=== PATIENT | female | born 2000 | race Caucasian/White ===

== ENCOUNTER 2019-07-14 17:47 | Emergency (ER) | payer MEDICAID, SELFPAY ==
[2019-07-14 17:48] VITALS: BP 130/72; PULSE 88; RESP 17; TEMP 36.7; O2SAT 100; BMI 28.3
--- NOTE | 2019-07-14 18:22 | ED.VIS.GEN ---
History of Present Illness Chief Complaint: Abd Pain Informant: Patient Onset: Days Context: Gradual Onset Timing: Waxes and wanes Current Severity: Mild Maximum Severity: Moderate Narrative: She presents with upper abdominal pain for the past 4 days. Pain does seem to be intermittent. It is not necessarily worsened with food. She also feels short of breath with any exertion. She denies nausea or vomiting but has had diarrhea. She was recently in [place] for vacation. She denies camping or drinking any river water. Past Medical History - Allergies and Home Meds Allergies/Adverse Reactions: Allergies No Known Allergies Allergy (Verified 07/14/19 17:48) Primary Care Physician: [facility] Doctor,Out of [Primary Care Provider] - 3-5 Days if not improving Prior records reviewed: Yes Past Medical History: - - Reviewed Surgical History: cholecystectomy Lives: With Family Review of Systems General: Reports: Chills. Denies: Fever Eyes: Denies: Visual changes - bilaterally ENT: Denies: Bilateral ear pain Cardiovascular: Denies: Chest pain Respiratory: Reports: Dyspnea. Denies: Cough Gastrointestinal: Reports: Abdominal pain, Diarrhea. Denies: Vomiting Genitourinary: Denies: Dysuria Musculoskeletal: Denies: Neck pain, Back pain Skin: Denies: Rash Neurological: Denies: Headache Endocrine: Denies: Polyuria, Polydipsia Hematologic: Denies: Easy bruising Allergy: Denies: Uticaria Physical Exam Vital Signs/Narrative: Vital Signs Temp Pulse Resp BP Pulse Ox 07/14/19 17:48 98.1 F 88 17 130/72 H 100 Inital Vital Signs reviewed: Yes General: Well nourished, Well developed ENT: Moist mucous membranes Neck: Supple Cardiovascular: Regular rate, Regular rhythm Respiratory: No distress, CTA bilaterally Abdomen: Soft, Nontender, Hypoactive bowel sounds Extremities: Nontender, No edema Skin: Normal color, No rash Neurological: Alert, Oriented x3 Psychological: Normal affect Diagnostic/Tx/Re-eval Laboratory Results 07/14/19 07/14/19 07/14/19 18:11 18:11 18:11 WBC 13.8 H RBC 4.73 Hgb 14.0 Hct 42.2 MCV 89.2 MCH 29.6 MCHC 33.2 RDW Std Deviation 38.4 RDW Coeff of Jessica 11.8 Plt Count 270 MPV 10.6 Immature Gran % (Auto) 0.400 Neut % (Auto) 62.7 Lymph % (Auto) 27.8 Colbert % (Auto) 7.2 Eos % (Auto) 1.2 Baso % (Auto) 0.7 Absolute Neuts (auto) 8.7 H Absolute Lymphs (auto) 3.84 Nucleated RBC % 0 D-Dimer Quant (PE/DVT) < 0.27 L Sodium 142 Potassium 3.8 Chloride 109 H Carbon Dioxide 27.0 Anion Gap 6 BUN 19 H Creatinine 0.82 Estim Creat Clear Calc 90.53 Est GFR (MDRD) Af Amer 115 Est GFR (MDRD) Non-Af 95 BUN/Creatinine Ratio 23.3 H Glucose 94 Calcium 8.7 Total Bilirubin 0.30 Direct Bilirubin 0.11 AST 19 ALT 21 Alkaline Phosphatase 98 Total Protein 7.0 Albumin 3.9 Globulin 3.1 Lipase 114 Serum , Qual Urine Color Urine Clarity Urine pH Ur Specific [place] Urine Protein Urine Glucose (UA) Urine Ketones Urine Occult Blood Urine Nitrite Urine Bilirubin Urine Urobilinogen Ur Leukocyte Esterase Urine RBC Urine WBC Ur Squamous Epith Cells Urine Bacteria Urine Mucus 07/14/19 07/14/19 18:11 19:10 WBC RBC Hgb Hct MCV MCH MCHC RDW Std Deviation RDW Coeff of Jessica Plt Count MPV Immature Gran % (Auto) Neut % (Auto) Lymph % (Auto) Colbert % (Auto) Eos % (Auto) Baso % (Auto) Absolute Neuts (auto) Absolute Lymphs (auto) Nucleated RBC % D-Dimer Quant (PE/DVT) Sodium Potassium Chloride Carbon Dioxide Anion Gap BUN Creatinine Estim Creat Clear Calc Est GFR (MDRD) Af Amer Est GFR (MDRD) Non-Af BUN/Creatinine Ratio Glucose Calcium Total Bilirubin Direct Bilirubin AST ALT Alkaline Phosphatase Total Protein Albumin Globulin Lipase Serum , Qual NEGATIVE Urine Color Straw Urine Clarity Clear Urine pH 7.0 Ur Specific [place] 1.010 Urine Protein Negative Urine Glucose (UA) Normal Urine Ketones Negative Urine Occult Blood Negative Urine Nitrite Negative Urine Bilirubin Negative Urine Urobilinogen Normal Ur Leukocyte Esterase Negative Urine RBC 0 SEEN Urine WBC 0 SEEN Ur Squamous Epith Cells 0-5 SEEN Urine Bacteria 0 SEEN Urine Mucus 0 SEEN - Medical Decision Making Patient was given Zofran, Toradol, and IV fluids. On repeat evaluation patient is resting comfortably does feel improved. Test results are discussed with her. Her white count is elevated at 13.8 but normal differential is noted. Abdomen is soft with no focal tenderness. D-dimer is negative. Patient is reassured with these findings. She will continue to follow bland diet and use Tylenol or ibuprofen as needed for pain. ED Disposition - Plan for ED Patient: Disposition: Home or Assisted Living Diagnosis: Abdominal pain Instructions: ABDOMINAL PAIN, Unknown Cause, (Female) Referrals: [facility] Doctor,Out of [Primary Care Provider] - 3-5 Days if not improving
[2019-07-14 18:30] LABS: Absolute Lymphocyte Count 3.84 X10^3/uL (0.83-4.51); Absolute Neutrophil Count 8.7 X10^3/uL (2.0-7.7); Basophil# 0.09 X10^3/uL; Basophil% 0.7 % (0-1); Eosinophil# 0.17 X10^3/uL; Eosinophils% 1.2 % (0-5); Hematocrit 42.2 % (37-47); Lymphocyte # 3.84 X10^3/ul (4.0); Lymphocyte % 27.8 % (19-41); Mean Corp Hgb Conc 33.2 g/dL (32-36); Mean Corpuscular Hgb 29.6 pg (27.0-32.0); Mean Corpuscular Volume 89.2 fL (81-99); Mean Platelet Vol. 10.6 fl (6.2-12.0); Monocyte# 0.99 X10^3/uL; Monocyte% 7.2 % (0-10); NRBC Flagged by Analyzer 0 % (0-5); Neutrophil # 8.65 X10^3/uL (2.7-7.7); Neutrophil % 62.7 % (47-70); Platelet Count 270 K/mm3 (150-450); RBC Distribution Width CV 11.8 % (11.6-14.6); RBC Distribution Width SD 38.4 fl (35.1-43.9); Red Blood Count 4.73 M/mm3 (4.2-5.4); White Blood Count 13.8 K/mm3 (4.4-11.0)
[2019-07-14 18:38] LABS: D-Dimer Quantitative (DVT/PE) < 0.27 FEU/ug/m (0.27-0.49); Internal QC Validated? YES +Cl - CLEAR BKGD; Pregnancy, Serum, hCG Quali. NEGATIVE Negative
[2019-07-14] MEDS: 0.9% Normal Saline 1,000 ML 150 ML IV (18:38)
--- NOTE | 2019-07-14 18:42 | ED.RN ---
PT DECLINES PAIN OR NAUSEA MEDICATION
[2019-07-14 18:44] LABS: AST(SGOT) 19 U/L (15-37); Alanine Aminotransfer ALT/SGPT 21 U/L (13-56); Albumin, Serum 3.9 g/dL (3.2-5.0); Alkaline Phosphatase 98 U/L (45-117); Anion Gap 6 (5-15); BUN 19 mg/dL (7-18); BUN/Creat Ratio 23.3 RATIO (10-20); Bilirubin, Direct 0.11 mg/dL (0.00-0.30); Calcium,Total 8.7 mg/dL (8.5-10.1); Chloride 109 mmol/L (98-107); Creatinine, Serum 0.82 mg/dL (0.55-1.02); EST Glomerular Filtration Rate 95 mL/min (>60); Est Glom Filt Rate - Afr Amer 115 mL/min (>60); Estimated Creatinine Clearance 90.53 ml/min; Globulin 3.1 g/dL (2.2-4.2); Glucose 94 mg/dL (74-106); Lipase 114 U/L (73-393); Potassium 3.8 mmol/L (3.5-5.1); Sodium Level 142 mmol/L (136-145)
[2019-07-14 19:15] LABS: Bacteria 0 SEEN /hpf (None Seen); Mucous, Urine 0 SEEN /hpf (<or=2+); Red Blood Cells-Urine 0 SEEN /hpf (0-5); White Blood Cells 0 SEEN /hpf (0-5)
[2019-07-14 20:12] LABS: Color, Urine Straw (Yellow); Glucose, Dipstick Normal (Normal); Ketone-Dipstick Negative (Negative); Leukocyte Esterase-Dipstick Negative /ul (Negative); Nitrite-Dipstick Negative (Negative); Occult Blood-Urine Negative /ul (Negative); Protein-Dipstick Negative (Negative); Urine Bilirubin Dipstick Negative (Negative); Urine Clarity Clear (Clear); Urine Urobilinogen Normal (Normal)
[2019-07-14 20:38] LABS: Squamous Epithelial Cells - UA 0-5 SEEN /hpf (5-10)
[2019-07-14 21:14] VITALS: RESP 18
== END 2019-07-14 21:15 | disposition home or self-care (01) ==
PROVIDERS: Emergency Provider Emergency Medicine
DX: R10.10 Upper abdominal pain, unspecified (principal); R19.7 Diarrhea, unspecified; R06.00 Dyspnea, unspecified; Z90.49 Acquired absence of other specified parts of digestive tract
CPT/HCPCS: 80048; 80076; 81001; 83690; 84703; 85025; 85379; 96360; 96361; 99283; J7030; A4216; J2405

== ENCOUNTER → 2022-05-23 | Outpatient (CLI) | payer OTHER, SELFPAY ==
[2022-05-23 09:20] LABS: Absolute Lymphocyte Count 2.67 X10^3/uL (0.83-4.51); Absolute Neutrophil Count 5.3 X10^3/uL (2.0-7.7); Basophil# 0.07 X10^3/uL; Basophil% 0.8 % (0-1); Eosinophil# 0.11 X10^3/uL; Eosinophils% 1.3 % (0-5); Hematocrit 41.7 % (37-47); Hemoglobin 13.8 g/dL (12.0-15.0); Lymphocyte # 2.67 X10^3/ul (0.83-4.51); Lymphocyte % 30.6 % (19-41); Mean Corp Hgb Conc 33.1 g/dL (32-36); Mean Corpuscular Hgb 29.7 pg (27.0-32.0); Mean Corpuscular Volume 89.7 fL (81-99); Mean Platelet Vol. 11.1 fl (6.2-12.0); Monocyte# 0.59 X10^3/uL; Monocyte% 6.8 % (0-10); NRBC Flagged by Analyzer 0 % (0-5); Neutrophil # 5.25 X10^3/uL (2.7-7.7); Neutrophil % 60.2 % (47-70); Platelet Count 258 K/mm3 (150-450); RBC Distribution Width CV 12.3 % (11.6-14.6); RBC Distribution Width SD 40.2 fl (35.1-43.9); Red Blood Count 4.65 M/mm3 (4.2-5.4); White Blood Count 8.7 K/mm3 (4.4-11.0)
[2022-05-23 09:22] LABS: Erythrocyte Sedimentation Rate < 1 mm/hr (0-30)
[2022-05-23 09:43] LABS: ALB/GLOB Ratio 1.3 RATIO (0.9-2.4); AST(SGOT) 24 U/L (15-37); Alanine Aminotransfer ALT/SGPT 29 U/L (13-56); Albumin, Serum 3.8 g/dL (3.2-5.0); Alkaline Phosphatase 87 U/L (45-117); Amylase 50 U/L (25-115); Anion Gap 3 (5-15); BUN 14 mg/dL (7-18); BUN/Creat Ratio 18.3 RATIO (10-20); CRP < 2.90 mg/L (0.0-3.0); Calcium,Total 9.3 mg/dL (8.5-10.1); Chloride 108 mmol/L (98-107); Cholesterol 111 mg/dL (200); Creatinine, Serum 0.76 mg/dL (0.55-1.02); EST Glomerular Filtration Rate 99 mL/min (>60); Est Glom Filt Rate - Afr Amer 120 mL/min (>60); Glucose 95 mg/dL (74-106); High Density Lipoprotein 64 mg/dL; LDH 210 U/L (84-246); Lipase 81 U/L (73-393); Potassium 4.3 mmol/L (3.5-5.1); Protein, Total 6.8 g/dL (6.4-8.2); Sodium Level 139 mmol/L (136-145); Triglycerides 35 mg/dL
[2022-05-26 14:08] LABS: Anti-Centromere B Ab <0.2 AI (0.0-0.9); Anti-Chromatin <0.2 AI (0.0-0.9); Anti-Jo <0.2 AI (0.0-0.9); Anti-Scleroderma-70 AB <0.2 AI (0.0-0.9); RNP Ab 0.3 AI (0.0-0.9); SJOGREN'S Anti-SS-A test < 0.2 AI (0.0-0.9); SJOGREN'S Anti-SS-B test < 0.2 AI (0.0-0.9); Smith Ab <0.2 AI (0.0-0.9)
[2022-05-26 17:33] LABS: Endomysial Antibody IgA Negative (Negative)
[2022-05-26 19:51] LABS: Anti-dsDNA Ab 3 IU/mL (0-9)
[2022-05-26 20:06] LABS: Immunoglobulin A 101 mg/dL (87-352); t-Transglutaminase IgA <2 U/mL (0-3)
[2022-05-28 16:08] LABS: Alpha-1-Globulins 0.2 g/dL (0.0-0.4); Alpha-2-Globulins 0.7 g/dL (0.4-1.0); Cytoplasmic Ab (C-ANCA) <1:20 titer (Neg:<1:20); Gamma Globulin 0.9 g/dL (0.4-1.8); Immunoglobulin A 97 mg/dL (87-352); Immunoglobulin E < 2 IU/mL (6-495); Immunoglobulin G 786 mg/dL (586-1602); Immunoglobulin M 111 mg/dL (26-217); LDL, Direct 120295 42 mg/dL (0-99); PROEL- TOTAL PROTEIN 6.6 g/dL (6.0-8.5)
[2022-05-28 16:59] LABS: Perinuclear Ab (P-ANCA) <1:20 titer (Neg:<1:20)
== END | disposition home or self-care (01) ==
LOC: PAVLAB 08:36
PROVIDERS: Referring Provider Internal Medicine Gastroenterology; Visit Provider Internal Medicine Gastroenterology
DX: R10.9 Unspecified abdominal pain (principal); R19.7 Diarrhea, unspecified; K58.9 Irritable bowel syndrome, unspecified
CPT/HCPCS: 36415; 80053; 82150; 82465; 82784; 82785; 83516; 83615; 83690; 83718; 83721; 84165; 84478; 85025; 85652; 86140; 86225; 86235; 86255; 86256; 86334

== ENCOUNTER 2022-06-03 12:11 | Day surgery (SDC) | payer OTHER, SELFPAY ==
[2022-06-03] VITALS (7 sets, daily range): BP systolic 98–131; BP diastolic 60–74; PULSE 71–85; RESP 16–18; TEMP 36.4–37.7; O2SAT 100; BMI 28.9
[2022-06-03 12:49] LABS: Internal QC Validated? YES +Cl - CLEAR BKGD
[2022-06-03 12:50] LABS: Pregnancy, Urine Negative Negative
[2022-06-03] MEDS: Lactated Ringers 1,000 ML 15 ML IV (13:05)
--- NOTE | 2022-06-03 13:15 | EGD_PTH ---
PATIENT: JAC MARSHALL LOC: EN U#:[id number] AGE/SX: 22/F ROOM: RE06/03/[address]: Dr. Parvez Ramos DO : 2000 BED: DIS: 06/03/2022 SPEC #: [id number] RECD: 06/03/22 14:47 STATUS: LILLY REDoris #: [id number] BARRETT: 06/03/22 13:[address]: Parvez Ramos DEPT: SURGICAL PATHOLOGY RECD BY: Bryce Burks ENTERED: 06/04/22 07:37 SP TYPE: EGD BIOPSY OT DR: Cindy Primary Care Phys Tissues: A - Duodenum, NOS B - Gastric mucous membrane C - Esophagus, NOS Procedures: Special Stain Group II Surgery Specimen Level IV Alcian Blue/PAS (control) HEADER OPERATION: EGD ([facility]), biopsy PRE-OP DIAGNOSIS: Abdominal pain, diarrhea TISSUE SUBMITTED: A ? Duodenum biopsy, B ? Gastric body biopsy, C ? Distal esophagus biopsy MICROSCOPIC DIAGNOSIS A. Duodenum, biopsy: No pathologic change. B. Gastric body, biopsy: Chronic gastritis. See comment. C. Distal esophagus, biopsy: Gastroesophageal junctional mucosa with chronic inflammation. No evidence of goblet cell metaplasia. See comment. AM:simona 06/05/2022 COMMENT B. The results of immunohistochemistry for Helicobacter pylori will be reported separately ([id number]). C. Alcian blue/PAS stain with matched control supports the above diagnosis. MICROSCOPIC DESCRIPTION Slides are reviewed. GROSS DESCRIPTION A - Received in fixative is one container labeled with the patient's name and designated duodenum biopsy. The specimen consists of two irregular fragments of light llanes soft tissue that in aggregate measure 0.7 x 0.6 x 0.1 cm. The specimen is totally submitted in one cassette. B - Received in fixative is one container labeled with the patient's name and designated gastric body biopsy. The specimen consists of three irregular fragments of light llanes soft tissue that in aggregate measure 0.7 x 0.3 x 0.1 cm. The specimen is totally submitted in one cassette. C - Received in fixative is one container labeled with the patient's name and designated distal esophagus. The specimen consists of two irregular fragments of light llanes soft tissue that in aggregate measure 1.2 x 0.1 x 1 cm. The specimen is totally submitted in one cassette. / AM:simona 06/04/2022 TC:3 CPT: 88408 x3, 84230
--- NOTE | 2022-06-03 13:15 | IMM_PTH ---
PATIENT: JAC MARSHALL LOC: EN U#:[id number] AGE/SX: 22/ ROOM: RE06/03/[address]: Dr. Parvez Ramos DO : 2000 BED: DIS: 06/03/2022 SPEC #: [id number] RECD: 06/04/22 08:41 STATUS: LILLY REQ #: [id number] BARRETT: 06/03/22 13:[address]: Parvez Ramos DEPT: IMMUNOHISTOCHEMISTRY RECD BY: Abby Carrillo ENTERED: 06/04/22 08:44 SP TYPE: IMMUNO OTHR DR: Cindy Primary Care Phys Tissues: B - Stomach, NOS Procedures: H Pylori (initial) PHYSICIAN & INSTITUTION [place] [id number] SPECIMEN INFORMATION: Tissue Source: B ? Gastric body biopsy Clinical Info: Abdominal pain, diarrhea Specimen Number: [id number] CPT code: 48488 METHODOLOGY: Deparaffinized sections of prefer/formalin-fixed tissue or PAP/DQ stained slides are incubated with monoclonal/polyclonal antibodies/oligonucleotide probes. Localization is made via biotin free immunoperoxidase method. Appropriate controls are performed and reacted as expected. Results on target cell population are indicated in the following table: RESULTS: ANTIBODY / CLONE RESULT Block B H Pylori (polyclonal) negative These tests were developed and their performance characteristics determined by [facility]. They may not have been cleared or approved by the U.S. Food and Drug Administration. The FDA has determined that such clearance or approval is not necessary. The above immunohistochemical/dualISH markers are ordered and reviewed by the Pathologist. INTERPRETATION: B. Gastric body, biopsy: Negative for Helicobacter pylori organisms. AM:simona 06/05/2022
--- NOTE | 2022-06-03 13:25 | HP.PCM_ITS ---
History and Physical Date of Admission: 06/03/22 22 F who presents to the office today for?Initial consult. Susannah [facility] this clinic 05.07.22 for evaluation of bloating and abdominal pain. Abdominal pain (sometimes generalized and sometimes epigastric) onset many years prior with progression around 2018 and significant worsening of pain postprandially with regular bloating and intermittent nausea without emesis and diarrhea as her normal BM with yellow and floating characteristics. Cholecystectomy performed 2018. When she eats high acid/vinegar content foods she has burning in her stomach; alcohol causes epigastric pain. Sometimes food causes symptoms to get better, sometimes foods worsen food. She has attempted food elimination of fried foods and gluten. She a test that indicated she has a lipase imbalance. Cholecystectomy 2018. FH grandmother pancreatitis. US abdomen 11.05.18 at another facility found cholelithiasis without gallbladder wall thickening, pain of biliary dilation. ROS Const Constitutional: No fatigue, malaise, night sweats, weight change, sleep problems, abnormal sleep pattern or change in appetite ENT ENT: No difficulty swallowing, hoarseness or sore throat Cardio Cardiology: No chest pain at rest Gastro GI: No belching, change in bowel habits, change in stool character, coffee ground emesis, constipation, cramping, heartburn, difficulty swallowing, feeling full early, excessive flatus, incontinent of stools, Vomiting blood/hematemesis, Blood in stool, loose stools, Black,tarry stools, nausea/dyspepsia, pain with swallowing, vomiting or other Musc Musculoskeletal: No joint pain Skin Skin: No yellowing of the eye or itchy eyes Neuro Neurology: No behavioral changes Psych Psychiatric: No abnormal sleep pattern, No anxiety, No behavioral changes, No change in appetite and No depression Endo Endocrine: No fatigue or weight change Aller/Imm Allergy/Immunologic: No itchy eyes Eddie/Lymp Hematologic/Lymphatic: No easy bleeding or easy bruising Exam Const General: cooperative and comfortable Nutritional Appearance: average body habitus and well nourished [facility] Head: normal to inspection Ears: hearing grossly normal bilaterally Nose: external nose normal Face and sinus: normal facial exam Mouth: oral mucosae normal Throat: posterior oropharynx normal Eyes General: appearance normal, both eyes and all related structures Neck Neck: normal visual inspection Chest Chest palpation & inspection: normal inspection of the chest and normal palpation of entire chest wall Resp Effort & Inspection: normal respiratory effort Auscultation: Bilateral: Clear to Auscultation Cardio Palpation: normal PMI Rate: regular rate Rhythm: regular rhythm GI Inspection: normal to inspection Auscultation: normal bowel sounds Percussion: normal to percussion Palpation: no hepatosplenomegaly Skin General: no rashes or lesions noted Neuro General: patient alert Extrem General: normal to inspection Psych Affect: normal affect Quality Reporting Tobacco Screening ([facility] 138) Smoking Status: Former smoker Assessment and Plan Assessment and Plan (1) Abdominal pain: ?Status:?Acute ?Plan: The differential diagnosis for her abdominal pain includes gastroparesis associated with possible scleroderma, H. pylori associated gastritis or gastric ulcers, celiac sprue, gluten sensitivity, small bacterial overgrowth, exocrine pancreatic insufficiency.? She will undergo an upper endoscopy to evaluate her upper GI tract.? We will also do biopsies for eosinophilic disease. (2) Diarrhea: ?Status:?Acute ?Plan: Differential diagnosis for her diarrhea does include inflammatory bowel disease, exocrine pancreatic insufficiency, celiac disease, accelerated gastrocolic reflex, bile induced diarrhea.? We will do stool testing along with inflammatory marker testing.? She may need a evaluation of her colon with imaging versus direct optical colonoscopy pending work-up. ? ? ? Orders: Orders Amylase Today K58.9 - Irritable bowel syndrome without diarrhea, R10.9 - Unspecified abdominal pain, R19.7 - Diarrhea, unspecified ? Comprehensive Metabolic Profil Today K58.9 - Irritable bowel syndrome without diarrhea, R10.9 - Unspecified abdominal pain, R19.7 - Diarrhea, unspecified ? CRP Today K58.9 - Irritable bowel syndrome without diarrhea, R10.9 - Unspecified abdominal pain, R19.7 - Diarrhea, unspecified ? LDH Today K58.9 - Irritable bowel syndrome without diarrhea, R10.9 - Unspecified abdominal pain, R19.7 - Diarrhea, unspecified ? Lipase Today K58.9 - Irritable bowel syndrome without diarrhea, R10.9 - Unspecified abdominal pain, R19.7 - Diarrhea, unspecified ? CBC W/Diff, Automated Today K58.9 - Irritable bowel syndrome without diarrhea, R10.9 - Unspecified abdominal pain, R19.7 - Diarrhea, unspecified ? Erythrocyte Sed Rate Today K58.9 - Irritable bowel syndrome without diarrhea, R10.9 - Unspecified abdominal pain, R19.7 - Diarrhea, unspecified ? LUPIS Comprehensive Panel Today R10.9 - Unspecified abdominal pain, R19.7 - Diarrhea, unspecified ? Calprotectin, Stool Today R10.9 - Unspecified abdominal pain, R19.7 - Diarrhea, unspecified ? Ova and Parasites 8623 Today K58.9 - Irritable bowel syndrome without diarrhea, R10.9 - Unspecified abdominal pain, R19.7 - Diarrhea, unspecified ? CDIFF (PCR) Today K58.9 - Irritable bowel syndrome without diarrhea, R10.9 - Unspecified abdominal pain, R19.7 - Diarrhea, unspecified ? ENTERIC PATHOGEN PANEL STOOL Today K58.9 - Irritable bowel syndrome without diarrhea, R10.9 - Unspecified abdominal pain, R19.7 - Diarrhea, unspecified ? Stool Lactoferrin/WBC Today K58.9 - Irritable bowel syndrome without diarrhea, R10.9 - Unspecified abdominal pain, R19.7 - Diarrhea, unspecified ? ANCA Today K58.9 - Irritable bowel syndrome without diarrhea, R10.9 - Unspecified abdominal pain, R19.7 - Diarrhea, unspecified ? Celiac Disease Profile Today K58.9 - Irritable bowel syndrome without diarrhea, R10.9 - Unspecified abdominal pain, R19.7 - Diarrhea, unspecified ? Immunoglobulins G/A/M/E Today K58.9 - Irritable bowel syndrome without diarrhea, R10.9 - Unspecified abdominal pain, R19.7 - Diarrhea, unspecified ? Giardia Lamblia, Stool EIA Today K58.9 - Irritable bowel syndrome without diarrhea, R10.9 - Unspecified abdominal pain, R19.7 - Diarrhea, unspecified ? ROMEL + Protein Elect, Serum Today K58.9 - Irritable bowel syndrome without diarrhea, R10.9 - Unspecified abdominal pain, R19.7 - Diarrhea, unspecified ? Pancreatic Elastase, Fecal Today K58.9 - Irritable bowel syndrome without diarrhea, R10.9 - Unspecified abdominal pain, R19.7 - Diarrhea, unspecified ? Cholesterol Today K58.9 - Irritable bowel syndrome without diarrhea ? High Density Lipoprotein Today K58.9 - Irritable bowel syndrome without diarrhea ? Triglycerides Today K58.9 - Irritable bowel syndrome without diarrhea ? LDL, Direct Today K58.9 - Irritable bowel syndrome without diarrhea ? Gastric Emptying Study Today R10.9 - Unspecified abdominal pain, R19.7 - Diarrhea, unspecified ? I have re-examined the patient. There are no clinical changes since date of exam
--- NOTE | 2022-06-03 13:57 | OP.CCLET_ITS ---
08/20/2022 Out Of Town Doctor Re : Upper GI endoscopy procedure for Susannah [facility] Doctor This procedure was performed on Friday, June 03, 2022. My impressions and recommendations are as follows: Impressions : - LA Grade A reflux esophagitis. Biopsied. - Erythematous mucosa in the gastric body, antrum and prepyloric region of the stomach. Biopsied. - Erythematous duodenopathy. Biopsied. Recommendations : - Discharge patient to home. - Resume previous diet. - Continue present medications. - Await pathology results. -CT scan of the abdomen and pelvis with oral contrast to look for superior mesenteric artery syndrome. My findings are described in the full procedure note, which is enclosed. If I can be of further assistance, please feel free to contact me at . Sincerely, Parvez Friend, 06/03/2022 1:57:12 PM This report has been signed electronically.
--- NOTE | 2022-06-03 13:57 | OP.EGD_ITS ---
Patient Name: Susannah Roberts Procedure Date: 06/03/2022 1:26 PM Date of : 2000 Age: 22 Procedure: Upper GI endoscopy Indications: Epigastric abdominal pain, Functional Dyspepsia Providers: Parvez Ramos DO Medicines: Monitored Anesthesia Care Patient Profile: This is a 22 year old female. Refer to note in patient chart for documentation of history and physical. Patient has symptoms of chronic epigastric abdominal pain and chronic nausea. Complications: No immediate complications. Procedure: Pre-Anesthesia Assessment: - Prior to the procedure, a History and Physical was performed, and patient medications and allergies were reviewed. The risks and benefits of the procedure and the sedation options and risks were discussed with the patient. All questions were answered and informed consent was obtained. Patient identification and proposed procedure were verified by the physician in the pre-procedure area. Mental Status Examination: alert and oriented. Airway Examination: normal oropharyngeal airway and neck mobility. Respiratory Examination: clear to auscultation. CV Examination: normal. Prophylactic Antibiotics: The patient does not require prophylactic antibiotics. Prior Anticoagulants: The patient has taken no previous anticoagulant or antiplatelet agents. ASA Grade Assessment: II - A patient with mild systemic disease. After reviewing the risks and benefits, the patient was deemed in satisfactory condition to undergo the procedure. The anesthesia plan was to use moderate sedation / analgesia (conscious sedation). Immediately prior to administration of medications, the patient was re-assessed for adequacy to receive sedatives. The heart rate, respiratory rate, oxygen saturations, blood pressure, adequacy of pulmonary ventilation, and response to care were monitored throughout the procedure. The physical status of the patient was re-assessed after the procedure. After obtaining informed consent, the endoscope was passed under direct vision. Throughout the procedure, the patient's blood pressure, pulse, and oxygen saturations were monitored continuously. The Endoscope was introduced through the mouth, and advanced to the second part of duodenum. The upper GI endoscopy was accomplished without difficulty. The patient tolerated the procedure well. Scope In: 1:38:31 PM Scope Out: 1:46:29 PM Total Procedure Duration Time 0 hours 7 minutes 58 seconds Findings: LA Grade A (one or more mucosal breaks less than 5 mm, not extending between tops of 2 mucosal folds) esophagitis with no bleeding was found 35 to 36 cm from the incisors. Biopsies were taken with a cold forceps for histology. Verification of patient identification for the specimen was done. Estimated blood loss was minimal. Patchy mildly erythematous mucosa without bleeding was found in the gastric body, in the gastric antrum and in the prepyloric region of the stomach. Biopsies were taken with a cold forceps for histology. Verification of patient identification for the specimen was done. Estimated blood loss was minimal. Patchy mildly erythematous mucosa without active bleeding and with no stigmata of bleeding was found in the first portion of the duodenum. Biopsies were taken with a cold forceps for histology. Verification of patient identification for the specimen was done. Estimated blood loss was minimal. There also seem to be a mild infolding of the second and third portion of the duodenum when trying to progress to endoscope. Impression: - LA Grade A reflux esophagitis. Biopsied. - Erythematous mucosa in the gastric body, antrum and prepyloric region of the stomach. Biopsied. - Erythematous duodenopathy. Biopsied. Recommendation: - Discharge patient to home. - Resume previous diet. - Continue present medications. - Await pathology results. -CT scan of the abdomen and pelvis with oral contrast to look for superior mesenteric artery syndrome. Procedure Code(s): --- Professional --- 62854, Esophagogastroduodenoscopy, flexible, transoral; with biopsy, single or multiple CPT copyright 2017 [employer]. All rights reserved. The codes documented in this report are preliminary and upon rubbish collector review may be revised to meet current compliance requirements. Parvez Ramos DO 06/03/2022 1:57:12 PM This report has been signed electronically. Number of Addenda: 1 Note Initiated On: 06/03/2022 1:26 PM Addendum Number: 1 Addendum Date: 08/20/2022 6:16:51 AM MAC was used as sedation for this procedure. Parvez Ramos DO 08/20/2022 6:16:54 AM This report has been signed electronically.
== END 2022-06-03 14:32 | disposition home or self-care (01) ==
LOC: EN 12:13 → AC 12:14
PROVIDERS: Anesthesiology; Referring Provider Internal Medicine Gastroenterology; Visit Provider Internal Medicine Gastroenterology
PROC: 0DJ08ZZ Inspection of Upper Intestinal Tract, Via Natural or Artificial Opening Endoscopic (ICD-10-PCS; CPT 43235; principal; 2022-06-03 13:10)
DX: K21.00 Gastro-esophageal reflux disease with esophagitis, without bleeding (principal); K29.50 Unspecified chronic gastritis without bleeding; K58.9 Irritable bowel syndrome, unspecified; R19.7 Diarrhea, unspecified; Z90.49 Acquired absence of other specified parts of digestive tract; Z87.891 Personal history of nicotine dependence
CPT/HCPCS: 43239; 81025; 88305; 88313; 88342; J7120; J2405

== ENCOUNTER → 2022-06-06 | Outpatient (CLI) | payer OTHER, SELFPAY ==
[2022-06-12 12:51] LABS: Giardia Lamblia, Stool EIA Negative (Negative); Pancreatic Elastase, Fecal 337 (>200)
[2022-06-12 20:17] LABS: Calprotectin, Stool <16 ug/g (0-120)
== END | disposition home or self-care (01) ==
PROVIDERS: Referring Provider Internal Medicine Gastroenterology; Visit Provider Internal Medicine Gastroenterology
DX: R10.9 Unspecified abdominal pain (principal); R19.7 Diarrhea, unspecified; K58.9 Irritable bowel syndrome, unspecified
CPT/HCPCS: 82653; 83630; 83993; 87177; 87209; 87329; 87506

== ENCOUNTER 2022-06-14 14:56 | Emergency (ER) | payer OTHER, SELFPAY ==
[2022-06-14 14:58] VITALS: BP 129/81; PULSE 116; RESP 18; TEMP 37.3; O2SAT 100; BMI 29.7
--- NOTE | 2022-06-14 15:28 | EKG12_ITS ---
Test Reason : GENERAL ILLNESS Blood Pressure : / mmHG Vent. Rate : 113 BPM Atrial Rate : 113 BPM P-R Int : 154 ms QRS Dur : 078 ms QT Int : 328 ms P-R-T Axes : 055 054 026 degrees QTc Int : 449 ms Sinus tachycardia Otherwise normal ECG Confirmed by BLAINE YEE, ZAID ([id number]), editorial director VICKIE VICKERS ([id number]) on 06/17/2022 1:00:23 PM Referred By: TL Confirmed By:ZAID VALLADARES MD
--- NOTE | 2022-06-14 15:29 | EDS_ITS ---
HPI History of Present Illness Chief Complaint: General Illness Informant: patient Narrative Narrative: Patient presents painful swallowing since yesterday today headache nonproductive cough temp of 99. States urine notes to have oil in it. Last menstrual adama od a month ago. Denies abdominal pain. Reports post upper endoscopy by Dr. Ramos a week ago found to have chronic inflammatory findings. Working diagnosis immunological concerns and being referred. Currently not on any medicines. States also had stool studies due to diarrhea found to have Yersinia she finished a week of Levaquin. She states still has diarrhea have only 1 today. She was exposed to COVID a week ago. She is nonvaccinated. She had COVID infection once in the past. States today also chest pains with dyspnea worse with exertion. No history of PE or DVT. PFSH PFSH Medical History Bloating Diarrhea Early satiety No pertinent past medical history Home Medications nirmatrelvir 300 mg (150 mg x2)-ritonavir 100 mg tablet,dose pack(EUA) (Paxlovid) See Rx Instructions PO .COMPLEX #30 tabs 06/14/22 [Rx Last Taken Unknown] Allergy/AdvReac Type Severity Reaction Status Date / Time gluten Allergy Intermediate UNK Verified 06/14/22 14:57 Surgical History History of cholecystectomy (~2019) Social History Smoking Status: Never smoker ROS ROS ED Constitutional Constitutional ED: Reports fever(s); Denies chills or sweats Eyes Eyes: Denies change in vision ENT ENT ED: Denies dysphagia or sore throat Cardiovascular Cardiovascular: Reports chest pain; Denies leg edema, palpitations or racing heartbeat Respiratory/Chest Respiratory/Chest: Reports cough and dyspnea; Denies dyspnea on exertion Gastrointestinal Gastrointestinal: Reports diarrhea; Denies abdominal pain, nausea or vomiting Genitourinary Genitourinary ED: Denies dysuria, hematuria or urinary frequency Musculoskeletal Musculoskeletal: Denies back pain, extremity pain or neck pain Integumentary Denies rash or wounds Neurologic Neurologic: Reports headache(s); Denies paresthesias or weakness EXAM Physical Exam Const Vital Signs: 06/14/22 14:58 06/14/22 15:05 06/14/22 16:01 Temperature 99.2 F H 99.2 F H Temperature Source Temporal Temporal Pulse Rate 116 H 111 H Respiratory Rate 18 17 Respiratory Effort Short of Breath Blood Pressure 129/81 H 121/73 H Blood Pressure Mean 97 89 Pulse Ox 100 100 Oxygen Delivery Method Room Air Room Air Positive well nourished and well developed Constitutional Narrative: Nontoxic General Appearance ED: well developed and NAD HEENT Reports moist mucous membranes normocephalic and atraumatic Eyes PERRL, EOMs intact bilaterally and conjunctivae normal General Eye ED: Yes normal appearance of both eyes Neck no lymphadenopathy and supple General: Negative for tenderness Chest Wall Chest: Negative for tenderness Resp normal respiratory effort and normal air movement Effort and Inspection: symmetric chest movement; Negative for respiratory distress Cardio regular rhythm and no murmurs Rate: tachycardic Peripheral Pulses: pulses 2+ throughout GI normal to inspection, nondistended, normoactive bowel sounds and non-tender Palpation: Negative for guarding or rebound tenderness present Back/Spine no CVA tenderness and no thoracic nor lumbar tenderness Extremity normal to inspection General Extremety ED: Negative for edema or tenderness General Extremity: Negative for edema Neuro oriented x3 and no sensory deficits noted Sensorium / Orientation: awake and alert Skin no rashes or lesions noted and no wounds MDM MDM MDM Narrative Medical decision making narrative: Patient tachycardic on arrival 100% on room air. Reported dyspnea cough worse with exertion. Recent anesthesia for EGD. Discussed work-up with patient to rule out PE. Her COVID testing did return positive symptomatic since yesterday. D-dimer negative. Chest x-ray 1 view reviewed by myself and read by radiology shows no acute process. Her labs are stable urine noted 25 leukocytes 2+ bacteria she denies any symptoms. No treatment at this time. She 2 days into Covid symptoms discussed and offered Paxlovid for which she wishes to start therefore this was sent to her pharmacy. Return precautions discussed. She will continue Tylenol Motrin as needed for her headache symptoms. She had no focal deficits or any meningismal findings. All questions were answered. Lab Data Attestation: I reviewed the patient's lab results. Labs: Laboratory Results - last 24 hr 06/14/22 06/14/22 06/14/22 15:40 15:55 15:55 WBC 7.4 RBC 4.53 Hgb 13.5 Hct 40.0 MCV 88.3 MCH 29.8 MCHC 33.8 RDW Std Deviation 39.0 RDW Coeff of Jessica 12.1 Plt Count 219 MPV 11.3 Immature Gran % (Auto) 0.300 Neut % (Auto) 79.6 H Lymph % (Auto) 6.9 L [place] % (Auto) 12.2 H Eos % (Auto) 0.3 Baso % (Auto) 0.7 Absolute Neuts (auto) 5.9 Absolute Lymphs (auto) 0.51 L Nucleated RBC % 0 Differential Comment SEE COMMENT Platelet Estimate ADEQUATE RBC Morphology N CHROM Anisocytosis RARE D-Dimer Quant (PE/DVT) < 0.27 L Sodium Potassium Chloride Carbon Dioxide Anion Gap BUN Creatinine Estim Creat Clear Calc Est GFR (MDRD) Af Amer Est GFR (MDRD) Non-Af BUN/Creatinine Ratio Glucose Calcium Urine Color Yellow Urine Clarity Clear Urine pH 7.0 Ur Specific [place] 1.010 Urine Protein Negative Urine Glucose (UA) Normal Urine Ketones Negative Urine Occult Blood Negative Urine Nitrite Negative Urine Bilirubin Negative Urine Urobilinogen Normal Ur Leukocyte Esterase 25 H Urine RBC 0 SEEN Urine WBC 0-5 SEEN Ur Squamous Epith Cells 0-5 SEEN Urine Bacteria 2+ Urine Mucus 0 SEEN Urine Test Negative 06/14/22 15:55 WBC RBC Hgb Hct MCV MCH MCHC RDW Std Deviation RDW Coeff of [place] Plt Count MPV Immature Gran % (Auto) Neut % (Auto) Lymph % (Auto) [place] % (Auto) Eos % (Auto) Baso % (Auto) Absolute Neuts (auto) Absolute Lymphs (auto) Nucleated RBC % Differential Comment Platelet Estimate RBC Morphology Anisocytosis D-Dimer Quant (PE/DVT) Sodium 138 Potassium 3.5 Chloride 107 Carbon Dioxide 24.0 Anion Gap 7 BUN 16 Creatinine 0.87 Estim Creat Clear Calc 83.19 Est GFR (MDRD) Af Amer 104 Est GFR (MDRD) Non-Af 86 BUN/Creatinine Ratio 18.4 Glucose 99 Calcium 9.3 Urine Color Urine Clarity Urine pH Ur Specific [place] Urine Protein Urine Glucose (UA) Urine Ketones Urine Occult Blood Urine Nitrite Urine Bilirubin Urine Urobilinogen Ur Leukocyte Esterase Urine RBC Urine WBC Ur Squamous Epith Cells Urine Bacteria Urine Mucus Urine Test Radiography Diagnostic Testing: Clinical Impression(s) from Imaging Studies Chest X-Ray 06/14/22 16:50 IMPRESSION: Normal x-ray examination of the chest. Electronically Signed: Myriam Burt MD at 17:32 EDT , Discharge Plan Triage Chief Complaint: General Illness ED Provider: Wilfredo Jo Dx/Rx/DC Orders Clinical Impression: COVID-19 virus infection, Diarrhea, Cough, Headache Instructions: Coronavirus Disease 2019 (COVID-19): Caring for Yourself or Others Prescriptions: New Paxlovid (EUA) 300 mg (150 mg x 2)-100 mg tablets,dose pack See Rx Instructions .ROUTE .COMPLEX Qty: 30 0RF Rx Instructions: take TWO 150 mg tablets of nirmatrelvir with ONE 100 mg tablet of ritonavir twice daily for 5 days Primary Care Provider: Care Physician,No Primary Referrals: Hector Toledo MD [Med Staff - Executive Associate] - 1 Week Care Physician,No Primary [Primary Care Provider] - Disposition Disposition: Home, Self Care Discharge Date/Time: 06/14/22 17:35
--- NOTE | 2022-06-14 15:31 | NURSING ---
NO OLD EKGS
[2022-06-14 15:53] LABS: Mucous, Urine 0 SEEN /hpf (<or=2+); Red Blood Cells-Urine 0 SEEN /hpf (0-5)
[2022-06-14] MEDS: 0.9% Normal Saline 1,000 ML 1000 ML IV (15:56)
[2022-06-14 15:58] LABS: Color, Urine Yellow (Yellow); Glucose, Dipstick Normal (Normal); Ketone-Dipstick Negative (Negative); Leukocyte Esterase-Dipstick 25 /ul (Negative); Nitrite-Dipstick Negative (Negative); Occult Blood-Urine Negative /ul (Negative); Protein-Dipstick Negative (Negative); Urine Bilirubin Dipstick Negative (Negative); Urine Urobilinogen Normal (Normal)
[2022-06-14 16:00] LABS: Urine Clarity Clear (Clear)
[2022-06-14 16:01] VITALS: BP 121/73; PULSE 111; RESP 17; TEMP 37.3; O2SAT 100
[2022-06-14 16:04] LABS: Internal QC Validated? YES +Cl - CLEAR BKGD; Pregnancy, Urine Negative Negative
[2022-06-14 16:14] LABS: Absolute Lymphocyte Count 0.51 X10^3/uL (0.83-4.51); Absolute Neutrophil Count 5.9 X10^3/uL (2.0-7.7); Basophil# 0.05 X10^3/uL; Basophil% 0.7 % (0-1); Eosinophil# 0.02 X10^3/uL; Eosinophils% 0.3 % (0-5); Hemoglobin 13.5 g/dL (12.0-15.0); Lymphocyte # 0.51 X10^3/ul (0.83-4.51); Lymphocyte % 6.9 % (19-41); Mean Corp Hgb Conc 33.8 g/dL (32-36); Mean Corpuscular Hgb 29.8 pg (27.0-32.0); Mean Corpuscular Volume 88.3 fL (81-99); Mean Platelet Vol. 11.3 fl (6.2-12.0); Monocyte% 12.2 % (0-10); NRBC Flagged by Analyzer 0 % (0-5); Neutrophil # 5.89 X10^3/uL (2.7-7.7); Neutrophil % 79.6 % (47-70); POSITIVE DIFFERENTIAL YES; Platelet Count 219 K/mm3 (150-450); RBC Distribution Width CV 12.1 % (11.6-14.6); Red Blood Count 4.53 M/mm3 (4.2-5.4); White Blood Count 7.4 K/mm3 (4.4-11.0)
[2022-06-14 16:18] LABS: Bacteria 2+ /hpf (None Seen); Squamous Epithelial Cells - UA 0-5 SEEN /hpf (5-10)
[2022-06-14 16:19] LABS: White Blood Cells 0-5 SEEN /hpf (0-5)
[2022-06-14 16:26] LABS: D-Dimer Quantitative (DVT/PE) < 0.27 FEU/ug/m (0.27-0.49)
[2022-06-14 16:43] LABS: Anion Gap 7 (5-15); BUN 16 mg/dL (7-18); BUN/Creat Ratio 18.4 RATIO (10-20); Calcium,Total 9.3 mg/dL (8.5-10.1); Chloride 107 mmol/L (98-107); Creatinine, Serum 0.87 mg/dL (0.55-1.02); EST Glomerular Filtration Rate 86 mL/min (>60); Est Glom Filt Rate - Afr Amer 104 mL/min (>60); Estimated Creatinine Clearance 83.19 ml/min; Glucose 99 mg/dL (74-106); Potassium 3.5 mmol/L (3.5-5.1); Sodium Level 138 mmol/L (136-145)
[2022-06-14 16:45] LABS: Differential Indicated SCAN CRITERIA MET
[2022-06-14 16:47] LABS: Anisocytosis RARE; Platelet Estimate ADEQUATE (ADEQ); Red Cell Morphology N CHROM NORMAL (NORM C&C)
--- NOTE | 2022-06-14 16:50 | RAD_ITS ---
STUDY: X-RAY CHEST REASON FOR EXAM: Female, 22 years old. Cough TECHNIQUE: Single frontal view of the chest. COMPARISON: None. FINDINGS: The lungs are clear and expanded. There is no demonstrated pleural abnormality. Normal size heart. Normal mediastinum and eligio. Normal visualized pulmonary arteries. Normal visualized aortic arch and descending thoracic aorta. Normal visualized thoracic spine. Normal visualized ribs, clavicles, and shoulders. There is no demonstrated abnormality of the visualized soft tissue structures of the upper abdomen. RAD/Chest 1 View (Portable) IMPRESSION: Normal x-ray examination of the chest. Electronically Signed: Myriam Burt MD at 17:32 EDT ,
== END 2022-06-14 17:35 | disposition home or self-care (01) ==
PROVIDERS: Emergency Provider Emergency Medicine; Visit Provider Emergency Medicine
DX: U07.1 COVID-19 (principal); Z28.310 Unvaccinated for COVID-19; R19.7 Diarrhea, unspecified; R51.9 Headache, unspecified
CPT/HCPCS: 71045; 80048; 81001; 81025; 85025; 85379; 87086; 87088; 87811; 93005; 96360; 99284; J7030; A4216

== ENCOUNTER → 2022-07-02 | Outpatient (CLI) | payer OTHER, SELFPAY ==
--- NOTE | 2022-07-02 10:34 | NM_ITS ---
INDICATION: diarrhea EXAMINATION: NUCLEAR MEDICINE GASTRIC EMPTYING - NM Gastric Emptying Study (solid, liquid or both) TECHNIQUE: Radiopharmaceutical (solid portion of the exam): 1.0 mCi of Tc99m Sulfur Colloid was administered orally. COMPARISON: None. FINDINGS: At 30 minutes 39% gastric emptying seen. At 60 minutes there is 66% gastric emptying seen. NM/Gastric Emptying Study IMPRESSION: Unremarkable gastric emptying time. Electronically Signed: Tima Russell MD at 15:49 EDT ,
== END | disposition home or self-care (01) ==
PROVIDERS: Nurse Practitioner Adult Health; Referring Provider Internal Medicine Gastroenterology; Visit Provider Internal Medicine Gastroenterology
DX: R19.7 Diarrhea, unspecified (principal); R10.9 Unspecified abdominal pain
CPT/HCPCS: 36415; 78264; A9541

== ENCOUNTER 2022-07-03 09:15 | Emergency (ER) | payer OTHER, SELFPAY ==
[2022-07-03 09:17] VITALS: BP 120/77; PULSE 80; RESP 16; TEMP 36.4; O2SAT 98; BMI 29.4
--- NOTE | 2022-07-03 09:29 | EX.ED.DYSGE1 ---
HPI History of Present Illness Chief Complaint: Rash Detail of Chief Complaint: Rash that she initially noticed 2 days ago Informant: patient Narrative Narrative: Patient presents the emergency department complaint of a rash to her face that started 2 days ago. Patient states last night she had a lot of itching associated with it. Patient did take Benadryl last night it seemed to help some of the redness. She did bring some pictures with her of what the rash looks like last evening. Patient still has some remaining bumps on the right side of her face but a lot of the redness is resolved. She denies any new soaps or detergents or other allergens. She currently is not taking any medications. Patient denies recent illness although she had COVID 3 to 4 weeks ago. Patient currently undergoing evaluation for autoimmune disorder. Patient states that today her lips and tongue felt strange. Prior similar symptoms: No PFSH PFSH Medical History Bloating Diarrhea Early satiety No pertinent past medical history Home Medications dicyclomine 10 mg capsule 10 mg PO BID #60 caps 06/25/22 [Rx Last Taken Unknown] pantoprazole 40 mg tablet,delayed release 40 mg PO QAM #30 tabs 06/25/22 [Rx Last Taken Unknown] prednisone 20 mg tablet 20 mg PO BID #10 tabs 07/03/22 [Rx Last Taken Unknown] Allergy/AdvReac Type Severity Reaction Status Date / Time gluten Allergy Intermediate Abd Verified 07/03/22 09:19 cramps/diarrhea Surgical History History of cholecystectomy (~2018) Social History Smoking Status: Never smoker ROS ROS ED Review of Systems ROS Unobtainable: other Constitutional Constitutional ED: Reports lethargy; Denies chills, fever(s), sweats or weight loss Eyes Eyes: Denies blurry vision, change in vision or diplopia ENT ENT ED: Denies rhinorrhea or sore throat Cardiovascular Cardiovascular: Denies chest pain, orthopnea or racing heartbeat Respiratory/Chest Respiratory/Chest: Reports dyspnea and dyspnea on exertion; Denies cough, orthopnea or sputum Gastrointestinal Gastrointestinal: Denies abdominal pain, diarrhea, nausea or vomiting Genitourinary Genitourinary ED: Denies dysuria, hematuria or urinary frequency Musculoskeletal Musculoskeletal: Denies arthralgias, back pain, myalgias or neck pain Integumentary Reports rash; Denies abscess or Abrasions Neurologic Neurologic: Denies headache(s) or weakness Psychiatric Psychiatric: Denies anxiety, depression or suicidal thoughts Endocrine Endocrinology: Denies polydipsia, polyphagia or polyuria Hematologic/Lymphatic Hematologic/Lymphatic: Denies easy bleeding, easy bruising or lymphadenopathy Allergic/Immunologic Allergic/Immunologic ED: Denies mouth swelling, tongue swelling or urticaria EXAM Physical Exam Const Vital Signs: 07/03/22 09:17 Temperature 97.6 F L Temperature Source Temporal Pulse Rate 80 Respiratory Rate 16 Blood Pressure 120/77 Blood Pressure Mean 91 Pulse Ox 98 Oxygen Delivery Method Room Air Positive well nourished and well developed General Appearance ED: well developed and NAD HEENT Reports TM's clear and moist mucous membranes normocephalic and atraumatic; Negative for trauma or tenderness Tympanic Membrane ED: Yes TM's clear Eyes PERRL and EOMs intact bilaterally General Eye ED: Negative for pale conjunctiva or scleral icterus Neck no lymphadenopathy, supple and no JVD General: Negative for tenderness Chest Wall inspection of chest normal and palpation of chest normal Chest: Negative for tenderness Resp normal respiratory effort and clear to auscultation bilaterally Effort and Inspection: Negative for respiratory distress or pain with movement Auscultation: Negative for rhonchi, wheezes or diminished lung sounds Cardio regular rate, regular rhythm, S1 normal heart sound, S2 normal heart sound and no murmurs Peripheral Pulses: pulses 2+ throughout GI normal to inspection, nondistended, normoactive bowel sounds, soft to palpation, non-tender, non-distended and no masses Back/Spine no CVA tenderness and no thoracic nor lumbar tenderness Extremity normal to inspection General Extremety ED: Negative for edema General Extremity: Negative for edema Neuro oriented x3, CN's II-XII intact bilaterally, no sensory deficits noted and gait normal Sensorium / Orientation: awake, alert, oriented to person, oriented to place and oriented to time Motor Exam: strength 5/5 throughout and strength abnormal Psych mental status grossly normal Skin no wounds Skin Narrative: Patient has a slightly raised erythematous rash involving the right side of the face. Patient has small papules measuring approximately 5 mm to a centimeter in diameter involving the right side of the face. There is no lip or tongue swelling or evidence of angioedema. No lesions noted in the mouth or oropharynx. The rash does not seem to involve any other parts of her body. MDM MDM MDM Narrative Medical decision making narrative: I evaluated the pictures from last night the patient brought with her and rash did appear more urticarial last evening with some significant confluent erythema underneath the chin and anterior throat as well as the right side of her face. That erythema is currently resolved. I suspect that patient may have a contact dermatitis or urticaria given that she did seem to respond somewhat to the Benadryl that she took last evening. I will start her on prednisone today. Patient to follow-up with primary care physician 3 to 5 days. She is advised to return if lip or tongue swelling, difficulty breathing, or condition should worsen anyway. Discharge Plan Triage Chief Complaint: Rash ED Provider: Alexander Garcia Dx/Rx/DC Orders Clinical Impression: Rash Instructions: ED Erythema, ED Hives (Adult) Prescriptions: New prednisone 20 mg tablet 20 mg PO BID Qty: 10 0RF No Action dicyclomine 10 mg capsule 10 mg PO BID Qty: 60 0RF pantoprazole 40 mg tablet,delayed release (DR/EC) 40 mg PO QAM Qty: 30 2RF Primary Care Provider: Care Physician,No Primary Referrals: Sammy Vann MD [Med Staff - Active Staff] - 3-5 Days Care Physician,No Primary [Primary Care Provider] - Disposition Disposition: Home, Self Care
[2022-07-03] MEDS: predniSONE 20 MG Tablet 40 MG PO (09:33)
== END 2022-07-03 09:38 | disposition home or self-care (01) ==
PROVIDERS: Emergency Provider Emergency Medicine; Visit Provider Emergency Medicine
DX: R21 Rash and other nonspecific skin eruption (principal); R06.00 Dyspnea, unspecified; Z79.899 Other long term (current) drug therapy; Z86.16 Personal history of COVID-19
CPT/HCPCS: 99282

== ENCOUNTER → 2022-11-03 | Outpatient (CLI) | payer OTHER, SELFPAY ==
[2022-11-03 11:50] LABS: Color, Urine Yellow (Yellow); Glucose, Dipstick Normal (Normal); Ketone-Dipstick Negative (Negative); Leukocyte Esterase-Dipstick 25 /ul (Negative); Nitrite-Dipstick Negative (Negative); Occult Blood-Urine Negative /ul (Negative); Protein-Dipstick Negative (Negative); Specific Gravity, Urine 1.015 (1.002-1.030); Urine Bilirubin Dipstick Negative (Negative); Urine Clarity Sl. Cloudy (Clear); Urine Urobilinogen Normal (Normal)
[2022-11-03 11:52] LABS: Erythrocyte Sedimentation Rate 1 mm/hr (0-30)
[2022-11-03 12:13] LABS: Absolute Lymphocyte Count 2.31 X10^3/uL (0.83-4.51); Absolute Neutrophil Count 6.3 X10^3/uL (2.0-7.7); Basophil# 0.08 X10^3/uL; Basophil% 0.8 % (0-1); Eosinophil# 0.12 X10^3/uL; Eosinophils% 1.2 % (0-5); Hematocrit 42.5 % (37-47); Hemoglobin 14.5 g/dL (12.0-15.0); Lymphocyte # 2.31 X10^3/ul (0.83-4.51); Lymphocyte % 23.9 % (19-41); Mean Corp Hgb Conc 34.1 g/dL (32-36); Mean Corpuscular Hgb 30.3 pg (27.0-32.0); Mean Corpuscular Volume 88.7 fL (81-99); Mean Platelet Vol. 11.8 fl (6.2-12.0); Monocyte# 0.89 X10^3/uL; Monocyte% 9.2 % (0-10); NRBC Flagged by Analyzer 0 % (0-5); Neutrophil # 6.26 X10^3/uL (2.7-7.7); Neutrophil % 64.7 % (47-70); Platelet Count 272 K/mm3 (150-450); RBC Distribution Width CV 11.9 % (11.6-14.6); RBC Distribution Width SD 38.7 fl (35.1-43.9); Red Blood Count 4.79 M/mm3 (4.2-5.4); White Blood Count 9.7 K/mm3 (4.4-11.0)
[2022-11-03 12:25] LABS: Protein, Urine (Random) < 6.0 mg/dL (<11.9)
[2022-11-03 12:36] LABS: ALB/GLOB Ratio 1.3 RATIO (0.9-2.4); AST(SGOT) 24 U/L (15-37); Alanine Aminotransfer ALT/SGPT 34 U/L (13-56); Albumin, Serum 3.9 g/dL (3.2-5.0); Alkaline Phosphatase 99 U/L (45-117); Anion Gap 7 (5-15); BUN 18 mg/dL (7-18); BUN/Creat Ratio 22.6 RATIO (10-20); CRP < 2.90 mg/L (0.0-3.0); Calcium,Total 9.2 mg/dL (8.5-10.1); Chloride 109 mmol/L (98-107); EST Glomerular Filtration Rate 95 mL/min (>60); Est Glom Filt Rate - Afr Amer 114 mL/min (>60); Glucose 64 mg/dL (74-106); Protein, Total 6.9 g/dL (6.4-8.2); Rheumatoid Factor < 10.0 IU/mL (<15); Sodium Level 141 mmol/L (136-145)
[2022-11-03 12:51] LABS: Hepatitis B Surface Antibody Non-Reactive; Hepatitis B Surface Antigen Non-Reactive (Nonreactive); Hepatitis C Antibody Non-Reactive (Nonreactive)
[2022-11-05 14:40] LABS: ANTINUCLEAR ANTIBODIES DIRECT Negative (Negative)
[2022-11-05 14:52] LABS: CCP IgG Antibodies 0 units (0-19)
== END | disposition home or self-care (01) ==
PROVIDERS: Referring Provider Internal Medicine Rheumatology; Visit Provider Internal Medicine Rheumatology
DX: M06.4 Inflammatory polyarthropathy (principal); J45.909 Unspecified asthma, uncomplicated; K29.70 Gastritis, unspecified, without bleeding
CPT/HCPCS: 36415; 80053; 81002; 82570; 84156; 85025; 85652; 86038; 86140; 86200; 86431; 86706; 86803; 87340